=== PATIENT | female | born 1935 | race Caucasian/White ===

== ENCOUNTER → 2018-04-11 09:11 | Outpatient (CLI) | payer MEDICARE, SELFPAY ==
--- NOTE | 2018-04-11 | DI.ECHO.S_ITS ---
[place] [facility]---------+ [facility] +---------+ : : [address] : : : : [id number] : : : : Phone: [phone]+ Echocardiogram Report + + :Name: NATACHA ALLEN Study Date: 04/11/2018 Height: 63 in : :[facility] Exam Location: [facility] Weight: 170 lb : : Gender: Female BSA: 1.8 m2 : :: 1935 Age: 82 yrs BP: 158/80 mmHg: :Reason For Study: FERGUSON : :Ordering Physician: Agustín Chavez : :Jose Martin Performed By: Iraida Bangura : :Referring: AGUSTÍN PHILIPPE : + + Interpretation Summary 1) Mild increased left ventricular thickness with normal size, wall motion, and systolic function (EF 60-65%). 2) Normal right ventricular size and function. 3) No significant valvular abnormalities. 4) The ascending aorta is mild-moderately enlarged at 4.4cm. 5) The aortic arch is mild-moderately enlarged at 4.0cm. 6) Compared to the Echo done 12/17/2016, no significant change. Procedure: A two-dimensional transthoracic echocardiogram with color flow and Doppler was performed. The study quality was technically adequate. Comparison is made with the echocardiogram of 12/17/2016. The patient was in normal sinus rhythm during the exam. Left Ventricle: The left ventricle is normal in size. Left ventricular wall thickness is mildly increased. Left ventricular systolic function is normal without focal wall motion abnormalities. The ejection fraction is estimated to be 60-65%. Left ventricular wall motion is normal. Diastolic parameters suggest probable normal left ventricular diastolic function and normal filling pressures. Right Ventricle: The right ventricle is normal in size and function. Atria: Both atria are normal in size. The interatrial septum is intact with no evidence for an atrial septal defect. Mitral Valve: The mitral valve leaflets appear mildly thickened, but open well. There is mild mitral annular calcification. There is systolic anterior motion of the chordal apparatus. There is trace mitral regurgitation. Aortic Valve: The aortic valve is trileaflet. The aortic valve opens well. There is no aortic valve stenosis. There is mild aortic regurgitation. Tricuspid Valve: The tricuspid valve is normal in structure and function. The right ventricular systolic pressure is estimated to be at least 25 mmHg based on an estimated right atrial pressure of 3 mm Hg. Pulmonic Valve: The pulmonic valve is normal in structure and function. There is a trace or physiologic amount of pulmonic regurgitation. Great Vessels: The aortic root is normal size. The ascending aorta is mild- moderately enlarged. The aortic arch is mild-moderately enlarged. The IVC is of normal diameter and collapses greater than 50% with a sniff. This suggests a low right atrial pressure of 3 mm Hg. Pericardium/ Pleura There is an anterior echo-free space consistent with a fat pad. There is no pericardial effusion. There is no pleural effusion. MMode/2D Measurements & Calculations LVIDd: 4.8 cm LVOT diam: 2.2 cm LVIDs: 3.1 cm Ao root diam: 3.5 cm FS: 35.9 % asc Aorta Diam: 4.4 cm IVSd: 1.1 cm Ao Arch Diam (Prox Trans): 4.0 cm LVPWd: 1.2 cm LV evans. diameter/BSA (cm/m^2): 2.6 LV sys. diameter/BSA (cm/m^2): 1.7 LA A2 area: 18.7 cm2 RA long axis: 4.8 cm LA A4 area: 18.5 cm2 RA area: 13.9 cm2 LA length (vol): 5.5 cm RA vol: 34.2 ml LA vol: 53.4 ml RA : 19.0 ml/m2 LA vol index: 29.6 ml/m2 TAPSE: 1.6 cm Doppler Measurements & Calculations Ao V2 max: 158.1 cm/sec LVOT Max Brenton: 129.6 cm/sec Ao V2 mean: 102.1 cm/sec LV V1 max P.7 mmHg Ao max P.0 mmHg LV V1 VTI: 27.2 cm Ao mean P.6 mmHg KATERYNA(I,D): 3.7 cm2 Ao V2 VTI: 28.9 cm KATERYNA(V,D): 3.2 cm2 sev ratio: 0.94 KATERYNA indexed to BSA (cm^2/m^2): 2.1 MV E max brenton: 56.3 cm/sec TR max brenton: 232.9 cm/sec MV A max brenton: 85.3 cm/sec TR max P.7 mmHg MV E/A: 0.66 PA V2 max: 88.6 cm/sec Med Peak E' Brenton: 5.3 cm/sec PA V2 mean: 54.5 cm/sec E/E' med: 10.7 PA mean P.3 mmHg Lat Peak E' Brenton: 5.9 cm/sec PA pr(Accel): 16.6 mmHg E/E' lat: 9.6 E/e' average: 10.1 MV dec time: 0.23 sec SVLVOT): 107.7 ml Reading Physician:01:15 PM
== END ==
PROVIDERS: PCP Nurse Practitioner; Visit Provider Internal Medicine Cardiovascular Disease
DX: I35.1 Nonrheumatic aortic (valve) insufficiency (principal); I77.89 Other specified disorders of arteries and arterioles
CPT/HCPCS: 93306

== ENCOUNTER → 2019-04-20 14:42 | Outpatient (CLI) | payer MEDICARE, SELFPAY ==
--- NOTE | 2019-04-20 15:18 | DI.ECHO.S_ITS ---
Echocardiogram Report + + :Name: NATACHA ALLEN Study Date: 04/20/2019 Height: 63 in : :[facility] Weight: 170 lb: : Gender: Female BSA: 1.8 m2 : :: 1935 Age: 83 yrs : :Reason For Study: ascending aortic dilation : :Ordering Physician: Alicia : :Kathy Philippe Performed By: Stephanie Noriega : + + Interpretation Summary 1) Mild increased left ventricular thickness with normal size, wall motion, and systolic function (EF 60-65%). 2) Normal right ventricular size and function. 3) No significant valvular abnormalities. 4) The ascending aorta is mildly enlarged at 4.1cm. 5) The aortic arch is mildly enlarged at 3.8cm. 6) Compared to the Echo done 04/11/2018, aorta is less enlarged on today's study. Procedure: A two-dimensional transthoracic echocardiogram with color flow and Doppler was performed. The study quality was technically adequate. Comparison is made with the echocardiogram of 04/11/2018. The patient was in normal sinus rhythm during the exam. Left Ventricle: The left ventricle is normal in size. Left ventricular wall thickness is mildly increased. There is no ventricular septal defect visualized. The ejection fraction is estimated to be 60-65%. There are no focal wall motion abnormalities. Right Ventricle: The right ventricle is normal in size and function. Atria: Both atria are normal in size. There is no Doppler evidence for an interatrial shunt. Mitral Valve: There is mild mitral annular calcification. The mitral valve leaflets appear mildly thickened, but open well. There is no mitral regurgitation noted. Aortic Valve: The aortic valve is trileaflet. There is discrete nodular thickening of the left coronary cusp. There is no aortic valve stenosis. There is trace aortic regurgitation. Tricuspid Valve: The tricuspid valve is not well visualized. Pulmonary artery pressures cannot be estimated because of the lack of a measurable TR jet velocity. Pulmonic Valve: The pulmonic valve is not well visualized. There is trace pulmonic regurgitation. Great Vessels: The aortic root is normal size. The ascending aorta is mildly enlarged. The aortic arch is mildly enlarged. The IVC is of normal diameter and collapses greater than 50% with a sniff. This suggests a low right atrial pressure of 3 mm Hg. Pericardium/ Pleura There is no pericardial effusion. There is an anterior echo-free space consistent with a fat pad. MMode/2D Measurements & Calculations LVIDd: 4.8 cm LVOT diam: 2.2 cm LVIDs: 2.8 cm Ao root diam: 3.3 cm FS: 40.5 % Aortic Jxn: 3.1 cm IVSd: 1.2 cm asc Aorta Diam: 4.1 cm LVPWd: 0.93 cm Ao Arch Diam (Prox Trans): 3.8 cm LV evans. diameter/BSA (cm/m^2): 2.6 LV sys. diameter/BSA (cm/m^2): 1.6 LA A2 area: 19.2 cm2 RA long axis: 4.8 cm LA A4 area: 17.8 cm2 RA area: 13.8 cm2 LA length (vol): 5.5 cm RA vol: 34.2 ml LA vol: 52.8 ml RA : 19.0 ml/m2 LA vol index: 29.3 ml/m2 IVC diam: 1.3 cm RVD1 (basal): 3.1 cm RVD2 (mid): 2.2 cm Doppler Measurements & Calculations Ao V2 max: 136.3 cm/sec LVOT Max Brenton: 105.4 cm/sec Ao V2 mean: 92.3 cm/sec LV V1 max P.4 mmHg Ao max P.4 mmHg LV V1 VTI: 22.4 cm Ao mean P.9 mmHg KATERYNA(I,D): 3.0 cm2 Ao V2 VTI: 27.8 cm KATERYNA(V,D): 2.9 cm2 sev ratio: 0.81 KATERYNA indexed to BSA (cm^2/m^2): 1.7 MV E max brenton: 48.9 cm/sec PA V2 max: 73.9 cm/sec MV A max brenton: 101.7 cm/sec PA V2 mean: 53.0 cm/sec MV E/A: 0.48 PA mean P.2 mmHg Med Peak E' Brenton: 2.8 cm/sec PA Accel Time: 0.08 sec E/E' med: 17.2 Lat Peak E' Brenton: 4.9 cm/sec E/E' lat: 9.9 E/e' average: 13.6 MV dec time: 0.38 sec MV P1/2t: 112.6 msec MV P1/2t max brenton: 49.6 cm/sec SV(LVOT): 82.9 ml MVA(P1/2t): 2.0 cm2 _ Reading Physician:05:01 PM
== END ==
PROVIDERS: PCP Nurse Practitioner; Referring Provider Internal Medicine Cardiovascular Disease; Visit Provider Internal Medicine Cardiovascular Disease
DX: I77.810 Thoracic aortic ectasia (principal)
CPT/HCPCS: 93306